=== PATIENT | female | born 1970 | race Caucasian/White ===

== ENCOUNTER → 2018-05-13 | Outpatient (CLI) | payer OTHER ==
--- NOTE | 2018-05-13 08:13 | RADIOLOGY IMAGING REPORT ---
FACILITY: [facility] [place] PATIENT NAME: Keely Mcfarland : 1970 MR: [id number] V: [id number] EXAM DATE: ORDERING PHYSICIAN: JOSEPH PRESCOTT TECHNOLOGIST: Location: [facility] Patient: Keely Mcfarland : 1970 Visit/Account:[id number] Date of Sevice: 05/13/2018 Focused right upper quadrant ultrasound HISTORY: Right upper quadrant pain. COMPARISON: None available. Findings: Standard right upper quadrant abdominal ultrasound is performed. Pancreas: Visualized portions of the pancreas are unremarkable. Liver: Negative. Gallbladder and biliary system: No gallbladder stone or sludge. No wall thickening, pericholecystic f luid, or sonographic Barkley's. The common bile duct is not dilated. Aorta and IVC: The visualized aorta and IVC are patent. Kidneys: The right kidney measures 12.1 x 4.5 x 5.1 cm. No hydronephrosis. Ascites: None. IMPRESSION: Normal right upper quadrant ultrasound. Report Dictated By: Ernst Macedo MD at 05/13/2018 8:04 AM Report E-Signed By: Ernst Macedo MD at 05/13/2018 8:09 AM WSN:[id number]
== END ==
LOC: US 02:22
PROVIDERS: ATTEND Nurse Practitioner Family
DX: R10.11 Right upper quadrant pain (principal)
CPT/HCPCS: 76705

== ENCOUNTER → 2019-02-23 | Outpatient (CLI) | payer OTHER ==
[~2019-02-23] MED LIST: IOPAMIDOL 76% 150 ML INFUS BTL 150 ML ONE
[2019-02-23 12:46] LABS: PLATELET COUNT, AUTOMATED 334 K/uL (150-450)
--- NOTE | 2019-02-23 14:05 | RADIOLOGY IMAGING REPORT ---
FACILITY: [facility] PATIENT NAME: Keely Mcfarland : 1970 MR: [id number] V: [id number] EXAM DATE: ORDERING PHYSICIAN: JOSEPH PRESCOTT TECHNOLOGIST: Location: [facility] [place] Patient: Keely Mcfarland : 1970 Visit/Account:[id number] Date of Sevice: 02/23/2019 CT ABDOMEN PELVIS W/ CON HISTORY: Epigastric pain x5 years intermittently TECHNIQUE: Following administration of IV contrast contiguous axial images acquired through the abdom en/pelvis. Coronal and sagittal reformatting also performed.Dose Lowering Technique One of the following dose optimization techniques was utilized in the performance of this exam: Autom ated exposure control; adjustment of the mA and/or kV according to the patient's size; or use of an i terative reconstruction technique. Specific details can be referenced in the facility's radiology C T exam operational policy. CONTRAST: 75 mL Isovue-[id number] COMPARISON: November 27, 2013 FINDINGS: Visualized lung bases: Negative. Hepatobiliary: Negative. Spleen: Negative. Adrenals: Negative. Pancreas: Negative. Kidneys ureters or bladder: Negative. Genitalia: There is a punctate calcification within the endometrium GI: There is scattered diverticula throughout the colon although no CT evidence of acute diverticuli tis Vessels/spaces/nodes: There are a few shotty mesenteric lymph nodes present Bones/soft tissues: There mild spondylotic changes in the lumbar spine and thoracic spine Additional findings: None pertinent. IMPRESSION: There is scattered diverticula throughout the colon although no CT evidence of acute diverticulitis A few shotty mesenteric lymph nodes Punctate calcification within the endometrium Report Dictated By: Klaudia Pal MD at 02/23/2019 1:47 PM Report E-Signed By: Klaudia Pal MD at 02/23/2019 1:59 PM WSN:[id number]
== END ==
LOC: CT 01:24
PROVIDERS: ATTEND Nurse Practitioner Family
DX: K57.30 Diverticulosis of large intestine without perforation or abscess without bleeding (principal); N85.8 Other specified noninflammatory disorders of uterus; R10.33 Periumbilical pain; R11.0 Nausea
CPT/HCPCS: 36415; 74177; 82150; 83690; 85025; Q9967; 82040; 82247; 82310; 82374; 82435; 82565; 82947; 84075; 84132; 84155; 84295; 84450; 84460; 84520

== ENCOUNTER 2019-05-04 00:41 | Day surgery (SDC) | payer OTHER ==
[~2019-05-04] VITALS: Ht 162.6 cm; Wt 87.1 kg
[~2019-05-04 00:41] MED LIST changes: +ALPH300C2 PO; +ATOR10TA24 PO; +BUPR-474 PO; +CA C1TAB3 PO; +DULA0.75 INJ; +INSU100I30 SQ; -IOPAMIDOL 76% 150 ML INFUS BTL 150 ML ONE; +LEVOTHYROXINE PO; +LIDOCAINE/SOD BICARB 8.4% SYR ID ONE; +METO25TA23 PO; +MULT-35 PO; +NORMOSOL R SOLN(*) 1000 ML BAG 1,000 ML IV PRN; +OMEG-11 PO; +OMEP-218 PO; +PIOG45TA65 PO; +SITA1TAB17 PO; +SPIR25TA80 PO; +[UNRECOGNIZED DRUG - OTHER] PO
[2019-05-04] MEDS ORDERED: PROPOFOL EMUL(*) 10MG/ML 20 ML 20 ML ONE ×3 (08:28→10:40)
[2019-05-04] MEDS ORDERED: LIDOCAINE/SOD BICARB 8.4% SYR ID ONE (08:40)
[2019-05-04] MEDS ORDERED: NORMOSOL R SOLN(*) 1000 ML BAG 1,000 ML IV PRN (08:40)
[2019-05-04 08:45] VITALS: BP 140/95
[2019-05-04 11:05] VITALS: BP 118/78
[2019-05-04 11:30] VITALS: BP 122/79
[2019-05-04 12:00] VITALS: BP 122/85
[2019-05-04 12:05] VITALS: BP 126/80
== END 2019-05-04 12:20 | disposition home or self-care (01) ==
LOC: OR 00:41
PROVIDERS: ATTEND Internal Medicine Gastroenterology
DX: K22.70 Barrett's esophagus without dysplasia (principal); K44.9 Diaphragmatic hernia without obstruction or gangrene; K20.9 Esophagitis, unspecified; K29.70 Gastritis, unspecified, without bleeding; K64.9 Unspecified hemorrhoids; K57.30 Diverticulosis of large intestine without perforation or abscess without bleeding
CPT/HCPCS: 00813; 36416; 43239; 45380; 82948; 88305; 88313; 88342; J2704